=== PATIENT | female | born 1965 | race Caucasian/White ===

== ENCOUNTER 2019-07-08 02:54 | Emergency (ER) | payer SELFPAY ==
[~2019-07-08] VITALS: Ht 154.9 cm; Wt 63.5 kg
--- NOTE | 2019-07-08 02:54 | NUR ---
PT SOPHIA BLS. TAKEN TO BED 5
[2019-07-08 02:55] VITALS: BP 147/113
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
--- NOTE | 2019-07-08 02:57 | NUR ---
Dr. Hastings examining patient.
[2019-07-08] MEDS ORDERED: KETOROLAC 60 MG/2 ML VIAL IM ONE ×2 (03:03→03:05)
--- NOTE | 2019-07-08 03:14 | NUR ---
PT TAKEN TO CT
--- NOTE | 2019-07-08 03:20 | NUR ---
PT RETURN FROM CT
[2019-07-08 04:31] LABS: BARBITURATE, URINE NEGATIVE ng/ml (NEG <=200); BENZODIAZEPINE, URINE NEGATIVE ng/mL (NEG <=200); CANNABINOID, URINE NEGATIVE ng/mL (NEG <=50); COCAINE, URINE NEGATIVE ng/mL (NEG <=300); OPIATE, URINE NEGATIVE ng/mL (NEG <=2000); PHENCYCLIDINE SCREEN,URINE NEGATIVE ng/mL (NEG <=25)
[2019-07-08 04:56] VITALS: BP 110/60
--- NOTE | 2019-07-08 04:56 | NUR ---
Patient discharged BY DR. OLIVA with v/s stable. Written and verbal after care instructions given and explained BY DR. OLIVA. Patient alert, oriented and verbalized understanding of instructions. Ambulatory with steady gait. All questions addressed prior to discharge BY DR. OLIVA. ID band removed. Patient advised to follow up with PMD. Rx of NAPROSYN given. Patient educated on indication of medication including possible reaction and side effects. Opportunity to ask questions provided and answered.
== END 2019-07-08 04:56 | disposition home or self-care (01) ==
LOC: MED 02:54
DX: S20.212A Contusion of left front wall of thorax, initial encounter (principal); V49.88XA Car occupant (driver) (passenger) injured in other specified transport accidents, initial encounter; Y93.89 Activity, other specified; Y92.89 Other specified places as the place of occurrence of the external cause; Y99.8 Other external cause status
CPT/HCPCS: 71250; 80305; 93005; 96372; 99285; J1885